=== PATIENT | female | born 1990 | race Asian ===

== ENCOUNTER 2017-12-02 14:41 | Emergency (ER) | END 2017-12-02 19:00 | disposition home or self-care (01) ==

== ENCOUNTER 2018-08-01 04:08 | Emergency (ER) | payer OTHER ==
[~2018-08-01] VITALS: Ht 157.5 cm; Wt 66.0 kg
[~2018-08-01 04:08] MED LIST: BACTDS PO; CEPH-443 PO; FAMO-96 PO; METO10TA92 PO; NAPR-985 PO; NO DAILY MEDS; OMEP20CA9 PO; ONDA4TAB8 PO; RANI150T35 PO; TRAM50TA2 PO
[2018-08-01 04:15] VITALS: Ht 157.5 cm; Wt 66.0 kg
--- NOTE | 2018-08-01 04:22 | ERD ---
ER Documentation Chief Complaint Chief Complaint possible allergic reaction to chocolate HPI The patient is a 28-year-old female, presenting to the ER because of possible allergic reaction to chocolate tarts that she ate. She feel her chest tightness, nasal congestion, itchy throat. She denies dysphagia, dysarthria, dyspnea, chest pain, abdominal pain, vomiting. She does not smoke nor drink Medical history: None past surgical history: Cholecystectomy ROS All systems reviewed and are negative except as per history of present illness. Medications Home Meds Active Scripts Diphenhydramine Hcl* (Benadryl*) 50 Mg Cap, 50 MG PO Q6H PRN for ITCHING/RASH, #15 CAP Prov:KIRSTY GALARZA MD 08/01/18 Famotidine* (Pepcid*) 20 Mg Tablet, 20 MG PO BID for 5 Days, TAB Prov:KIRSTY GALARZA MD 08/01/18 Famotidine* (Pepcid*) 20 Mg Tablet, 20 MG PO BID for 5 Days, TAB Prov:KIRSTY GALARZA MD 08/01/18 Prednisone* (Prednisone*) 20 Mg Tab, 50 MG PO DAILY for 5 Days, TAB Prov:KIRSTY GALARZA MD 08/01/18 Tramadol HCl (Tramadol HCl) 50 Mg Tablet, 50 MG PO Q4 PRN for SEVERE PAIN LEVEL 7-10, #10 TAB Prov:HENRY ZARAGOZA 12/02/17 Famotidine* (Pepcid*) 20 Mg Tablet, 20 MG PO DAILY for 60 Days, TAB Prov:HENRY ZARAGOZA 12/02/17 Metoclopramide* (Reglan*) 10 Mg Tablet, 10 MG PO Q6 PRN for NAUSEA AND/OR VOMITING, #20 TAB Prov:HENRY ZARAGOZA 12/02/17 Naproxen* (Naprosyn*) 500 Mg Tablet, 500 MG PO BID PRN for PAIN AND/OR INFLAMMATION, #30 TAB Prov:HENRY ZARAGOZA 12/02/17 Cephalexin* (Keflex*) 500 Mg Capsule, 500 MG PO QID for 5 Days, CAP Prov:PASHENRY ZHONG 12/02/17 Ondansetron Hcl* (Zofran*) 4 Mg Tablet, 4 MG PO Q6H for NAUSEA AND/OR VOMITING, #30 TAB Prov:LENA LEVIN PA-C 11/19/15 Tramadol HCl (Tramadol HCl) 50 Mg Tab, 50 MG PO Q4 PRN for PAIN, #20 TAB Prov:DOMINIK ALEMAN PA-C 02/06/15 Cephalexin* (Keflex*) 500 Mg Capsule, 500 MG PO QID for 10 Days, CAP Prov:DOMINIK ALEMAN PA-C 02/06/15 Ranitidine Hcl* (Zantac*) 150 Mg Tablet, 150 MG PO BID PRN for epigastric pain, #30 TAB Prov:DENTON YU RECRUITING CONSULTANT 01/13/15 Omeprazole* (Prilosec*) 20 Mg Capsule.dr, 20 MG PO DAILY for 14 Days, CAP Prov:DENTON YU RECRUITING CONSULTANT 01/13/15 Sulfamethoxazole-Trimethoprim* (Bactrim* DS) 800-160 Mg Tab, 1 TAB PO BID for 5 Days, TAB Prov:RAFAEL ARREAGA DO 01/11/15 Reported Medications [No Daily Meds] No Conflict Check 09/01/14 Allergies Allergies: Coded Allergies: ciprofloxacin (Verified Allergy, Unknown, RASH, 09/01/14) PMhx/Soc History of Surgery: Yes (CHOLYSYSTECTOMY ) Anesthesia Reaction: No Hx Neurological Disorder: No Hx Respiratory Disorders: No Hx Cardiac Disorders: No Hx Psychiatric Problems: No Hx Miscellaneous Medical Probl: Yes (UTI) Hx Alcohol Use: No Hx Substance Use: No Hx Tobacco Use: No Physical Exam Vitals Vital Signs Date Temp Pulse Resp B/P (MAP) Pulse Ox O2 O2 Flow FiO2 Time Delivery Rate 08/01/18 90 16 123/79 100 Room Air 05:03 (94) 08/01/18 99.8 110 20 141/73 99 04:15 (95) Physical Exam Const: No acute distress. Head: Atraumatic. Eyes: Normal Conjunctiva. ENT: Normal External Ears, Nose and Mouth. Neck: Full range of motion. No meningismus. Resp: Clear to auscultation bilaterally. Cardio: Regular rate and rhythm. Abd: Soft, non distended, normal bowel sounds, non tender. Skin: Scattered macular papular erythematous rash in the back and the chest, no vesicles/pustules Back: No midline or flank tenderness. Ext: No cyanosis, or edema. Neur: Awake and alert. No focal deficit Psych: Normal Mood and Affect. Results 24 hrs Current Medications Medications Dose Sig/Guevraa Start Time Status Last (Trade) Ordered Route PRN Stop Time Admin Dose Reason Admin 125 mg ONCE ONCE 08/01/18 DC 08/01/18 Methylprednis IV 04:30 08/01/18 04:44 olone Sodium 04:32 Succinate (Solu-Medrol) Sodium 1,000 ml @ Q1H ONCE 08/01/18 DC 08/01/18 Chloride 1,000 mls/hr IV 04:30 08/01/18 04:44 05:29 Famotidine 20 mg ONCE ONCE 08/01/18 DC 08/01/18 (Pepcid Iv) IV 04:30 08/01/18 04:44 04:32 50 mg ONCE ONCE 08/01/18 DC 08/01/18 Diphenhydrami IV 04:30 08/01/18 04:44 ne HCl 04:32 (Benadryl) Ondansetron 4 mg ONCE STAT 08/01/18 DC 08/01/18 HCl (Zofran IV 04:51 08/01/18 04:54 Inj) 04:52 Procedures/MDM MEDICAL MAKING DECISION: The patient is a 28-year-old female, presenting with acute food allergy, was treated with 1 L normal saline, Solu-Medrol 125 mg IV, Pepcid 20 mg IV, Benadryl 50 mg IV, Zofran 4 mg IV for acute food allergy with good response. She is above outpatient follow-up The differential diagnoses considered include but are not limited to urticaria, anxiety attack, panic attack Departure Diagnosis: Primary Impression: Food allergy Condition: Good Comments She was discharged with prednisone, Pepcid and Benadryl I discussed the findings with the patient. I advised the patient to follow-up with the primary physician in about 2-3 days, sooner if needed and return if any concern. Disclaimer: Inadvertent spelling and grammatical errors are likely due to EHR/dictation software use and do not reflect on the overall quality of patient care. Also, please note that the electronic time recorded on this note does not necessarily reflect the actual time of the patient encounter. KIRSTY GALARZA MD Aug 01, 2018 04:22
[2018-08-01] MEDS ORDERED: SOD CHLORIDE 0.9% 1,000 ML IV ONE (04:30)
[2018-08-01] MEDS ORDERED: FAMOTIDINE 20 MG INJ IV ONE (04:30)
[2018-08-01] MEDS ORDERED: METHYLPREDNISOLONE 125 MG INJ IV ONE (04:30)
[2018-08-01] MEDS ORDERED: DIPHENHYDRAMINE 50 MG INJ IV ONE (04:30)
[2018-08-01] MEDS ORDERED: ONDANSETRON 4 MG INJ IV STA (04:51)
[2018-08-01] MEDS ORDERED: PRED20TA PO (05:27)
[2018-08-01] MEDS ORDERED: FAMO-96 PO (05:28)
[2018-08-01] MEDS ORDERED: BEN50 PO (05:29)
[2018-08-01 06:06] VITALS: BP 108/69; PULSE 78; RESP 16
== END 2018-08-01 06:09 | disposition home or self-care (01) ==
LOC: E/R 04:08
DX: T78.1XXA Other adverse food reactions, not elsewhere classified, initial encounter (principal); R40.2142 Coma scale, eyes open, spontaneous, at arrival to emergency department; R40.2362 Coma scale, best motor response, obeys commands, at arrival to emergency department; R40.2252 Coma scale, best verbal response, oriented, at arrival to emergency department; R21 Rash and other nonspecific skin eruption
CPT/HCPCS: 96374; 96375; 99284; J1200; J2405; J2930; J7030

== ENCOUNTER 2018-08-02 23:45 | Emergency (ER) | payer MEDICAID, OTHER ==
[~2018-08-02] VITALS: Ht 157.5 cm; Wt 67.5 kg
[~2018-08-02 23:45] MED LIST changes: +BEN50 PO; +PRED20TA PO
[2018-08-02 23:48] VITALS: BP 162/87; PULSE 98; RESP 18; Ht 157.5 cm; Wt 67.5 kg
--- NOTE | 2018-08-03 04:08 | ERD ---
ER Documentation Chief Complaint Chief Complaint SKIN RASH HPI 28-year-old female presents with complaint of recurrent skin rashes. She states that she was here yesterday and they gave her prednisone as well as Benadryl for an allergic reaction but this morning she had the rash again. She states that now it is gotten better. Denies any wheezing, shortness of breath, nausea, vomiting. ROS All systems reviewed and are negative except as per history of present illness. Medications Home Meds Active Scripts Diphenhydramine Hcl* (Benadryl*) 50 Mg Cap, 50 MG PO Q6H PRN for ITCHING/RASH, #15 CAP Prov:KIRSTY GALARZA MD 08/01/18 Famotidine* (Pepcid*) 20 Mg Tablet, 20 MG PO BID for 5 Days, TAB Prov:KIRSTY GALARZA MD 08/01/18 Famotidine* (Pepcid*) 20 Mg Tablet, 20 MG PO BID for 5 Days, TAB Prov:KIRSTY GALARZA MD 08/01/18 Prednisone* (Prednisone*) 20 Mg Tab, 50 MG PO DAILY for 5 Days, TAB Prov:KIRSTY GALARZA MD 08/01/18 Tramadol HCl (Tramadol HCl) 50 Mg Tablet, 50 MG PO Q4 PRN for SEVERE PAIN LEVEL 7-10, #10 TAB Prov:HENRY ZARAGOZA 12/02/17 Famotidine* (Pepcid*) 20 Mg Tablet, 20 MG PO DAILY for 60 Days, TAB Prov:HENRY ZARAGOZA 12/02/17 Metoclopramide* (Reglan*) 10 Mg Tablet, 10 MG PO Q6 PRN for NAUSEA AND/OR VOMITING, #20 TAB Prov:BEREILAHENRY RODRIGUEZ 12/02/17 Naproxen* (Naprosyn*) 500 Mg Tablet, 500 MG PO BID PRN for PAIN AND/OR INFLAMMATION, #30 TAB Prov:HENRY ZARAGOZA 12/02/17 Cephalexin* (Keflex*) 500 Mg Capsule, 500 MG PO QID for 5 Days, CAP Prov:PASILAHENRY RODRIGUEZ 12/02/17 Ondansetron Hcl* (Zofran*) 4 Mg Tablet, 4 MG PO Q6H for NAUSEA AND/OR VOMITING, #30 TAB Prov:LENA LEVIN PA-C 11/19/15 Tramadol HCl (Tramadol HCl) 50 Mg Tab, 50 MG PO Q4 PRN for PAIN, #20 TAB Prov:DOMINIK ALEMAN PA-C 02/06/15 Cephalexin* (Keflex*) 500 Mg Capsule, 500 MG PO QID for 10 Days, CAP Prov:DOMINIK ALEMAN PA-C 02/06/15 Ranitidine Hcl* (Zantac*) 150 Mg Tablet, 150 MG PO BID PRN for epigastric pain, #30 TAB Prov:DENTON YU MASTER DATA ANALYST 01/13/15 Omeprazole* (Prilosec*) 20 Mg Capsule.dr, 20 MG PO DAILY for 14 Days, CAP Prov:DENTON YU MASTER DATA ANALYST 01/13/15 Sulfamethoxazole-Trimethoprim* (Bactrim* DS) 800-160 Mg Tab, 1 TAB PO BID for 5 Days, TAB Prov:RAFAEL ARREAGA DO 01/11/15 Reported Medications [No Daily Meds] No Conflict Check 09/01/14 Allergies Allergies: Coded Allergies: ciprofloxacin (Verified Allergy, Unknown, RASH, 09/01/14) PMhx/Soc Anesthesia Reaction: No Hx Neurological Disorder: No Hx Respiratory Disorders: No Hx Cardiac Disorders: No Hx Psychiatric Problems: No Hx Miscellaneous Medical Probl: Yes (UTI) Hx Alcohol Use: No Hx Substance Use: No Hx Tobacco Use: No FmHx Family History: No diabetes, No coronary disease, No other Physical Exam Vitals Vital Signs Date Temp Pulse Resp B/P (MAP) Pulse Ox O2 O2 Flow FiO2 Time Delivery Rate 08/02/18 100.3 98 18 162/87 99 23:48 (112) Physical Exam Const: No acute distress Head: Atraumatic Eyes: Normal Conjunctiva ENT: Normal External Ears, Nose and Mouth. Airway is patent with no angioedema or tongue edema. Neck: Full range of motion. No meningismus. Resp: Clear to auscultation bilaterally Cardio: Regular rate and rhythm, no murmurs Abd: Soft, non tender, non distended. Normal bowel sounds Skin: No petechiae or rashes Back: No midline or flank tenderness Ext: No cyanosis, or edema Neur: Awake and alert Psych: Normal Mood and Affect Procedures/MDM 28-year-old female presents with complaint of recurrent skin rashes. She states that she was here yesterday and they gave her prednisone as well as Benadryl for an allergic reaction but this morning she had the rash again. She states that now it is gotten better. Denies any wheezing, shortness of breath, nausea, vomiting. Patient is currently asymptomatic and there are no rashes noted on exam. Advised patient to continue taking the prednisone as well as the Benadryl that she was previously prescribed as needed and to follow-up with her doctor she probably has an allergy and she would need allergy testing in order to find out exactly what the allergy is to. I have low suspicion for anaphylaxis, respiratory distress, or other emergent condition. Patient discharged with strict ER precautions. Patient advised to follow up with PMD. All questions answered at discharge. Departure Diagnosis: Primary Impression: Rash Condition: Stable DWAYNE MCNEIL Aug 03, 2018 04:08
== END 2018-08-03 05:00 | disposition home or self-care (01) ==
LOC: FTE 23:45
DX: R21 Rash and other nonspecific skin eruption (principal)
CPT/HCPCS: 99282

== ENCOUNTER 2018-09-16 01:52 | Emergency (ER) | payer SELFPAY ==
[~2018-09-16] VITALS: Ht 157.5 cm; Wt 66.7 kg
[2018-09-16 01:56] VITALS: BP 137/76; PULSE 79; RESP 18; Ht 157.5 cm; Wt 66.7 kg
== END 2018-09-16 02:26 | disposition left against medical advice (07) ==
LOC: FTE 01:52
DX: Z53.21 Procedure and treatment not carried out due to patient leaving prior to being seen by health care provider (principal)